=== PATIENT | male | born 1975 | race Caucasian/White ===

== ENCOUNTER 2020-06-19 16:14 | Emergency (ER) | payer MEDICAID, SELFPAY ==
[2020-06-19 16:40] VITALS: BP 132/86; PULSE 76; RESP 14; TEMP 37; O2SAT 99; BMI 22.8
--- NOTE | 2020-06-19 16:44 | HMH.EDUTC ---
[facility] [place] Disposition Clinical Impression: Sinusitis Qualifiers: Sinusitis location: unspecified location Chronicity: acute Recurrence: non-recurrent Qualified Code(s): J01.90 - Acute sinusitis, unspecified Superficial laceration of right hand Qualifiers: Encounter type: initial encounter Qualified Code(s): S61.411A - Laceration without foreign body of right hand, initial encounter Disposition: Home, Self-Care Condition on Discharge: Good Instructions: Sinusitis, DI for Sinusitis, Preventing the Spread of Coronavirus Discharge Instructions Additional Instructions: Drink plenty of fluids. Take tylenol or ibuprofen for pain or fever. Take the medications as directed. Follow up with your regular doctor. GO TO THE ER FOR ANY WORSENING SYMPTOMS Prescriptions: Pseudoephedrine HCl 30 mg PO Q6HP PRN #30 tab PRN Reason: Congestion Transmission Status: Received by [facility] Mupirocin [Bactroban 2% Ointment 22gm tube] 1 applicatio TP TID 7 Days #1 tube Transmission Status: Received by [facility] Azithromycin [Z-Bin 250mg Tab*] 250 mg PO UD DOSE PK #6 tab Transmission Status: Received by [facility] Referrals: PCP,No [Primary Care Provider] - Forms: Work/School Release Time of Disposition: 16:51 Medical Decision Making - Medical Records Medical records reviewed: No: I reviewed the patient's medical records. - Tyler Inquiry Pt receiving controlled substance: No Vital Signs: 06/19/20 16:40 Temperature 98.6 F Temperature Source Oral Pulse Rate [Right Brachial] 76 Respiratory Rate 14 Blood Pressure [Right Arm] 132/86 Blood Pressure Mean [Right Arm] 101 Blood Pressure Source [Right Arm] Automatic Cuff Blood Pressure Position [Right Arm] Sitting 02 Sat by Pulse Oximetry 99 Oxygen Delivery Method Room Air Orders (Tests/Meds): ED MEDICATIONS Discontinued Medications Generic Name Dose Route Start Last Admin Trade Name Freq PRN Reason Stop Dose Admin Tetanus/Reduced Diphtheria/Acell Pertussis 0.5 ml 06/19/20 16:52 06/19/20 17:06 Tet/Diphth/Pert-Adult 0.5ml Syringe IM 06/19/20 16:53 0.5 ml [address] ONE Administration [facility] [place] HPI - General Stated complaint: SOA, headache, congestion Time Seen by Provider: 06/19/20 16:44 - History of Present Illness Provider Complaint: He states that for the past 4 days he has had sinus congestion and mild headache. He did have a covid exposure approx 2 weeks ago, but until now he has felt normal. He also has a superficial laceration on his right hand. He states that his tetanum immunization is not up to date and he would like to have a tetanus shot. - Related Data Home Medications Medication Instructions Recorded Confirmed Buprenorphine HCl/Naloxone HCl 2 tab SL DAILY 06/19/20 06/19/20 [Buprenorphin-Naloxon 8-2 mg Sl] Previous Rx's Medication Instructions Recorded Azithromycin [Z-Bin 250mg Tab*] 250 mg PO UD DOSE PK #6 tab 06/19/20 Mupirocin [Bactroban 2% Ointment 1 applicatio TP TID 7 Days #1 tube 06/19/20 22gm tube] Pseudoephedrine HCl 30 mg PO Q6HP PRN #30 tab 06/19/20 Allergies Allergy/AdvReac Type Severity Reaction Status Date / Time Penicillins Allergy Verified 06/19/20 16:46 [facility] History - Hepatitis A Screen Attestation statement:: This patient has been screened for Hepatitis A risk factors. I have reviewed the patient's past medical history: Yes ROS Obtained: Yes All systems reviewed & no additional complaints - Constitutional Constitutional: Reports chills, Denies fever(s), Reports frequent falls, Reports poor appetite - Eyes Eyes: Denies eye discharge - ENT Ears, Nose, Mouth, and Throat: Reports as per HPI - Cardiovascular Cardiovascular: Denies chest pain - Respiratory Respiratory: Yes as per HPI - Gastrointestinal Gastrointestingal: Reports: nausea. Denies: abdominal pain, diarrhea, vomiting - Integumentary/Breasts Skin/Breast: Jam
[2020-06-19 17:28] VITALS: BP 132/86; PULSE 76; RESP 14; TEMP 37; O2SAT 99
== END 2020-06-19 17:30 | disposition home or self-care (01) ==
PROVIDERS: Emergency Provider Nurse Practitioner Family
DX: J01.90 Acute sinusitis, unspecified (principal); Z20.828 Contact with and (suspected) exposure to other viral communicable diseases; S61.411A Laceration without foreign body of right hand, initial encounter; Z23 Encounter for immunization
CPT/HCPCS: 90471; 90715; 99201; U0003

== ENCOUNTER 2020-07-01 19:21 | Emergency (ER) | payer MEDICAID, SELFPAY ==
[2020-07-01 19:25] VITALS: BP 137/100; PULSE 67; RESP 18; TEMP 36.9; O2SAT 98; BMI 22.8
--- NOTE | 2020-07-01 19:41 | HMH.EDUTC ---
[facility] – [place] Disposition Clinical Impression: Sinusitis Qualifiers: Sinusitis location: unspecified location Chronicity: unspecified Qualified Code(s): J32.9 - Chronic sinusitis, unspecified Disposition: Home, Self-Care Condition on Discharge: Good Instructions: Sinusitis, Sinus Headache, DI for Sinusitis, Preventing the Spread of Coronavirus Discharge Instructions, Doxycycline Additional Instructions: *Monitor Temp, Over the counter Motrin or Tylenol as directed/as needed Tylenol every 4 hours and Motrin every 6 hours (as long as your family doctor has told you that you can take it) for fever or pain. and straight to ER if unable to lower temp less than 101.0 after medication given *Warm salt water gargles may help to soothe the throat *Throat Lozenges *Warm fluids like tea with honey may help to soothe the throat *Sleep elevated *Humidifier/Vaporizer Follow up IMMEDIATELY for new or worsening symptoms or no Noticeable improvement over the next 48-72 hours. 911 for difficulty breathing or swallowing Take medication as prescribed You was tested for today for COVID19 your test result should be back in the next 24-48 hours, you may call back on Sunday to see if your test results are back and the result You was given a handout with instructions for Self Quarantine and Self isolation for while you wait on test results and what to do if they are positive Prescriptions: Doxycycline Hyclate [Doxycycline 100mg Capsule] 100 mg PO BID 7 Days #14 cap Transmission Status: Pending to [facility] Referrals: PCP,No [Primary Care Provider] - As needed Forms: Work/School Release Time of Disposition: 19:52 Medical Decision Making - Tyler Inquiry Pt receiving controlled substance: No Tyler was queried for this patient: No Vital Signs: 07/01/20 19:25 Temperature 98.4 F Temperature Source Oral Pulse Rate [Right Brachial] 67 Respiratory Rate 18 Blood Pressure [Right Arm] 137/100 H Blood Pressure Mean [Right Arm] 112 Blood Pressure Source [Right Arm] Automatic Cuff Blood Pressure Position [Right Arm] Sitting 02 Sat by Pulse Oximetry 98 Oxygen Delivery Method Room Air Orders (Tests/Meds): ORDERS Category Date Time Status Covid-19 Nasal PCR Sendout [facility] 07/01/20 19:35 Ordered Medical Decision Narrative: Patient reports that he was seen and treated over two weeks ago for Sinusitis and was given zpack State that it helped for a few days then symptoms returned and was worse than before States that now it is worse than it was then with dark yellowish brown mucous with blood tinged mucous when he blowed his nose State that now pressure is worse behind his eyes and feels like it is making his teeth hurt [facility] – [place] HPI - General Stated complaint: Headache, nausea, exposed to COVID Time Seen by Provider: 07/01/20 19:42 Mode of Arrival: Ambulatory Source of Information: Patient Limitations: No Limitations Description of Symptoms (Recalled from Triage Doc. by RN): PATIENT C/O HEADACHE, SINUS DRAINAGE/PRESSURE, AND DECREASED TASTE. REQUESTING COVID TEST D/T EXPOSURE HEENT Symptoms (Recalled from RN notes): Yes Resp Symptoms (Recalled from RN notes): No Skin Symptoms (Recalled from RN notes): No MS Symptoms (Recalled from RN notes): No Functional Status (Recalled from RN notes): WNL - History of Present Illness Provider Complaint: Patient states that he was exposed to COVID a few weeks ago and was tested an dx with sinus infection and given zpack State that it cleared him up for a few days while he was taking it then the pressure and drainage returned States that for the last week and half he has had worsening of sinus pain and pressure and notice that he has had some bloody mucous at times when he blows his nose also states that everything he eats tastes funny States that also wants to get tested again for COVID because he was around someone the last couple of days that tested positive for COVID - Related Data
[2020-07-01 19:50] VITALS: BP 127/77; PULSE 69
[2020-07-01 19:56] VITALS: BP 127/77; PULSE 69; RESP 18; TEMP 36.9; O2SAT 98
[2020-07-03 16:10] LABS: Covid-19 Nasal PCR Sendout Lex Not Detected
--- NOTE | 2020-07-03 18:38 | PC.NURSE ---
patient notified of neg covid test results
== END 2020-07-01 20:00 | disposition home or self-care (01) ==
PROVIDERS: Emergency Provider Nurse Practitioner
DX: Z20.828 Contact with and (suspected) exposure to other viral communicable diseases (principal); J32.9 Chronic sinusitis, unspecified
CPT/HCPCS: 99202; U0004